=== PATIENT | female | born 1980 | race Caucasian/White ===

== ENCOUNTER 2017-03-17 09:10 | Emergency (ER) | payer MEDICAID ==
[2017-03-17 09:16] VITALS: TEMP 98.2
--- NOTE | 2017-03-17 09:32 | EDPHY ---
H & P Stated Complaint: R sided neck pain x 2 days Time Seen by Provider: 03/17/17 09:24 HPI/ROS: CHIEF COMPLAINT: right-sided neck pain since last evening HISTORY OF PRESENT ILLNESS: 36-year-old female complaining of atraumatic right lateral neck pain, neck stiffness secondary to the pain. Pain is reproducible with range of motion and with palpation. She took a single Tylenol with no significant improvement in pain. No peripheral paresthesia, weakness, numbness. No peripheral deficits. No headache. No visual disturbance. No history of chiropractic manipulation or deep tissue massage. No history of major minor head or neck trauma. No visual disturbance. No facial pain or paresthesia. No dizziness. No hearing loss. PRIMARY CARE PROVIDER: none REVIEW OF SYSTEMS: A ten point review of systems was performed and is negative with the exception of the items mentioned in the HPI PAST MEDICAL/SURGICAL HISTORY: no anticoagulant use, no relevant medical/ surgical history SOCIAL HISTORY: denies alcohol use at time of incident PHYSICAL EXAM 1) GENERAL: Well-developed, well-nourished, alert and oriented. Appears uncomfortable, holding her head still.. Answering questions appropriately. 2) HEAD: Normocephalic, atraumatic 3) HEENT: Pupils equal, round, reactive to light bilaterally. Negative Horners. Nasopharynx, oropharynx, clear. No deformity or angulation of nose. No septal hematoma. No rhinorrhea. No oral trauma. Ears bilaterally with normal tympanic membranes. No hemotympanum. No fluid or blood in the external auditory canal. No raccoon eyes. No June sign. 4) NECK: No cervical collar is on. Tender to palpation right trapezius. Posterior cervical spine is nontender, no stepoff, no effusion. Full range of motion which does not elicit any midline cervical spine pain, no posterior midline tenderness, no step-off. 5) LUNGS: Clear to auscultation bilaterally, no wheezes, no rhonchi, no retractions. . 6) HEART: Regular rate and rhythm, 7) ABDOMEN: No guarding, no rebound, no focal tenderness, no peritoneal signs, no signs of trauma, no ecchymosis 8) MUSCULOSKELETAL: Moving all extremities, no focal areas of tenderness, no obvious trauma. 9) BACK: No midline vertebral tenderness, no fluctuance, no step-off, no obvious trauma, no visual or palpable abnormality. 10) SKIN: No laceration. No abrasion 11) NEURO: Awake, alert, and oriented to person, place and time. Answers questions appropriately. There were no obvious focal neurologic abnormalities. No cerebellar dysfunction. Cranial nerves 2 through to 12 intact. Normal steady gait. Upper and lower extremities bilaterally with strength 5 / 5, reflexes 2+. DIFFERENTIAL DIAGNOSIS: [In no particular order my differential includes but is not limited to deep space infection, cervico-cranial vessel disssection, muscle strain. - Personal History LMP (Females 10-55): 1-7 Days Ago Current Tetanus Diphtheria and Acellular Pertussis (TDAP): Yes - Medical/Surgical History Other PMH: neck injury ~15 years ago. C/sect. bact meningitis as child - Social History Smoking Status: Current some day smoker Constitutional: Initial Vital Signs Temperature (C) 36.8 C 03/17/17 09:11 Heart Rate 101 H 03/17/17 09:11 Respiratory Rate 18 03/17/17 09:11 Blood Pressure 122/89 H 03/17/17 09:11 O2 Sat (%) 97 03/17/17 09:11 O2 Delivery Mode Room Air Allergies/Adverse Reactions: No Known Allergies Allergy (Unverified 03/17/17 09:16) Home Medications: Medication Instructions Recorded Cyclobenzaprine [Flexeril 10 MG 10 mg PO TID #15 tab 03/17/17 (RX)] Lidocaine 5% [Lidoderm 5% Patch 1 ea TD BID #30 patch 03/17/17 (*)] Medical Decision Making ED Course/Re-evaluation: I think that the patient's symptoms are more than likely secondary to muscular strain. I think that cervico-cranial vessel dissection is less than likely in this patient at this time. I think that dislocation or fracture of the cervical spine is less than likely as well. I think that meningitis is less than likely. I do not think that imaging studies definitively indicated at this time. we have discussed that I cannot rule out discogenic etiology such as disc herniation. However as she has no peripheral neurologic deficits or weakness either subjectively or objectively I do not think that emergent MRI is indicated. I discussed this with the patient and she is in agreement and feels comfortable with this treatment plan. Recommended against any chiropractic or deep tissue manipulation. I am prescribing her Flexeril and lidocaine patches. I have also provided her primary care follow-up as she has no primary care provider. My usual and customary cervical precautions and instructions have been provided including avoiding manipulation of the area. Departure - Departure Disposition: Home, Routine, Self-Care Clinical Impression: Cervical myofascial strain Qualifiers: Encounter type: initial encounter Qualified Code(s): S16.1XXA - Strain of muscle, fascia and tendon at neck level, initial encounter Condition: Good Instructions: Cervical Strain (ED) Additional Instructions: Return to the ER immediately if you experience new or worsening neck pain, dizziness, visual disturbance, double vision, lightheadedness, facial droop, or any other symptoms that concern you. Avoid deep tissue massage and chiropractic manipulation. Referrals: Lukasz Mckenzie MD [Medical Doctor] - As per Instructions Prescriptions: Cyclobenzaprine [Flexeril 10 MG (RX)] 10 mg PO TID #15 tab Lidocaine 5% [Lidoderm 5% Patch (*)] 1 ea TD BID #30 patch
[2017-03-17] MEDS ORDERED: IBUPROFEN 600 MG TAB PO ONE ×2 (09:33→09:36)
[2017-03-17 09:47] VITALS: BP 104/78; PULSE 65; RESP 13; O2SAT 98
== END 2017-03-17 09:47 | disposition home or self-care (01) ==
DX: S16.1XXA Strain of muscle, fascia and tendon at neck level, initial encounter (principal); F17.200 Nicotine dependence, unspecified, uncomplicated; X58.XXXA Exposure to other specified factors, initial encounter

== ENCOUNTER 2017-03-17 22:47 | Emergency (ER) | payer MEDICAID ==
[2017-03-17 23:09] VITALS: BP 127/93; PULSE 83; RESP 20; TEMP 97.5; O2SAT 98
== END 2017-03-18 01:08 | disposition left against medical advice (07) ==
DX: Z53.21 Procedure and treatment not carried out due to patient leaving prior to being seen by health care provider (principal)